=== PATIENT | female | born 1980 | race American Indian/Alaskan Native ===

== ENCOUNTER 2018-12-11 12:15 | Outpatient (CLI) | payer OTHER ==
--- NOTE | 2018-12-11 13:25 | Mammography Report ---
BILATERAL DIGITAL DIAGNOSTIC MAMMOGRAM with CAD: 12/11/18 12:15:00 CLINICAL: A right palpable breast lump. COMPARISON:None. FINDINGS: The breasts are heterogeneously dense, which may obscure small masses.No mass, architectural distortion or suspicious calcifications. No mammographic finding at a right subareolar palpable marker. IMPRESSION: Negative mammogram.Recommend return for a targeted right breast ultrasound to evaluate the area of palpable lump. BI-RADS CATEGORY: 0--Needs Additional Imaging ACR BI-RADS MAMMOGRAPHIC CODES: 0 = Needs additional imaging evaluation; 1 = Negative; 2 = Benign; 3 = Probably benign; 4 = Suspicious; 5 = Malignant; 6 = Known biopsy-proven malignancy COMMENT: 1. Dense breast tissue, i.e., adenosis, fibrocystic changes, etc., may obscure an underlying neoplasm. 2. Approximately 10% of cancers are not detected with mammography. 3. A negative mammography report should not delay biopsy if a clinically suspicious mass is present. COMMENT: Patient follow-up letters are generated by our [employer] application.
== END 2018-12-11 12:16 | disposition home or self-care (01) ==
LOC: SPVWC 12:15
PROVIDERS: ATTEND Internal Medicine
DX: N63.10 Unspecified lump in the right breast, unspecified quadrant (principal)
CPT/HCPCS: 77066

== ENCOUNTER 2019-01-18 10:12 | Outpatient (CLI) | payer OTHER ==
--- NOTE | 2019-01-18 12:01 | Ultrasound Report ---
TARGETED RIGHT BREAST ULTRASOUND: 01/18/19 10:12:00 CLINICAL: 38 year-old with a right palpable lump. COMPARISON: 12/11/18 FINDINGS: Ultrasound of the right breast was performed in the periareolar area from 7 to 9 o'clock. A palpable oval intradermal cyst is identified at 8 o'clock 4 cm from the nipple. It correlates with the palpable lump and measures 3 mm. A benign cyst at 9 o'clock 8 cm from the nipple measures 3 x 3 x 2 mm. No solid mass or shadowing. IMPRESSION: A benign 3 mm intradermal cyst at 8 o'clock 4 cm from the nipple correlates with the palpable lump. BI-RADS 2 - - Benign RECOMMENDATION: Clinical followup and routine mammographic screening based on ACS guidelines.
== END 2019-01-18 10:13 | disposition home or self-care (01) ==
LOC: SPVWC 10:12
PROVIDERS: ATTEND Internal Medicine
DX: N60.01 Solitary cyst of right breast (principal)

== ENCOUNTER 2019-07-12 11:38 | Emergency (ER) | payer OTHER ==
[2019-07-12 11:50] VITALS: BP 119/81
--- NOTE | 2019-07-12 11:59 | Emergency Department Report ---
Blank Doc - Documentation Documentation: 38-year-old female that presents with mid chest pain and some sob. Denies any radiation. This initial assessment/diagnostic orders/clinical plan/treatment(s) is/are subject to change based on patient's health status, clinical progression and re- assessment by fellow clinical providers in the ED. Further treatment and workup at subsequent clinical providers discretion. Patient/guardians urged not to elope from the ED as their condition may be serious if not clinically assessed and managed. Initial orders include: 1- Patient sent to [facility] for further evaluation and treatment 2- CXR 3- labs 4- EKG
[2019-07-12 12:34] LABS: Basophils # (Auto) 0.1 K/mm3 (0.0-0.1); Basophils % (Auto) 1.3 % (0.0-1.8); Eosinophils % (Auto) 0.4 % (0.0-4.3); Hemoglobin 14.9 gm/dl (10.1-14.3); Lymphocytes % (Auto) 51.4 % (13.4-35.0); Mean Corpuscular HGB Conc 34 % (30-34); Mean Corpuscular Volume 92 fl (79-97); Monocytes # (Auto) 0.2 K/mm3 (0.0-0.8); Monocytes % (Auto) 5.9 % (0.0-7.3); Platelet Count 192 K/mm3 (140-440); Red Blood Count 4.79 M/mm3 (3.65-5.03); Red Cell Distribution Width 13.1 % (13.2-15.2)
[2019-07-12 12:48] LABS: BUN/Creatinine Ratio 23; Blood Urea Nitrogen 14 mg/dL (7-17); Calcium 9.2 mg/dL (8.4-10.2); Hemolysis Index 92
--- NOTE | 2019-07-12 12:52 | XRay Report ---
CHEST 2 VIEWS INDICATION: Chest Pain. COMPARISON: None. FINDINGS: Support devices: None. Heart: Within normal limits. Pulmonary vasculature: Normal. Lungs/pleura: No acute air space or interstitial disease. No pneumothorax. Additional findings: None. IMPRESSION: 1. No acute findings. Signer Name: Onofre Garcia MD Signed: 07/12/2019 12:48 PM Workstation Name: [id number]
--- NOTE | 2019-07-12 13:32 | Emergency Department Report ---
ED Chest Pain HPI - General Chief Complaint: Chest Pain Stated Complaint: CHEST PAIN Time Seen by Provider: 07/12/19 11:57 Source: patient Mode of arrival: Ambulatory Limitations: No Limitations - History of Present Illness Initial Comments: Jania is a very pleasant healthy 38-year-old female without significant past medical history who presents with persistent chest pain for the past 10 days. Chest pain is in the center of the chest persistent. No change with movement or time of day. She does notice a lot more gas. A lot of belching. She denies shortness of breath. She denies leg pain. She has IUD in place. No use of oral contraceptives. No significant family history for cardiac disease. Mild symptoms. She has not taken nxap-hnb-[id number] medication for the pain. Her primary care physician's practice name is [facility] MD Complaint: chest pain -: Gradual, days(s) (10) Onset: during rest Pain Location: substernal Pain Radiation: none Severity scale (0 -10): 2 Quality: pressure Consistency: constant Improves With: nothing Worsens With: nothing Other Symptoms: burping Treatments Prior to Arrival: none - Related Data Previous Rx's Medication Instructions Recorded Last Taken Type Famotidine [Pepcid] 20 mg PO BID 14 Days #28 tablet 07/12/19 Unknown Rx Allergies Allergy/AdvReac Type Severity Reaction Status Date / Time No Known Allergies Allergy Unverified 07/12/19 11:59 Heart Score - HEART Score History: Slightly suspicious EKG: Normal Age: < 45 Risk factors: No known risk factors Troponin: < normal limit HEART Score: 0 ED Review of Systems ROS: Stated complaint: CHEST PAIN Other details as noted in HPI Comment: All other systems reviewed and negative Constitutional: denies: chills, fever Eyes: denies: eye pain, eye discharge, vision change ENT: denies: ear pain, throat pain Respiratory: denies: cough, shortness of breath, wheezing Cardiovascular: denies: chest pain, palpitations Endocrine: no symptoms reported Gastrointestinal: denies: abdominal pain, nausea, diarrhea Genitourinary: denies: urgency, dysuria, discharge Musculoskeletal: denies: back pain, joint swelling, arthralgia Skin: denies: rash, lesions Neurological: denies: headache, weakness, paresthesias Psychiatric: denies: anxiety, depression Hematological/Lymphatic: denies: easy bleeding, easy bruising ED Past Medical Hx - Past Medical History Previous Medical History?: No - Surgical History Past Surgical History?: No - Social History Smoking Status: Never Smoker Substance Use Type: None - Medications Home Medications: Home Medications Medication Instructions Recorded Confirmed Last Taken Type Famotidine [Pepcid] 20 mg PO BID 14 Days #28 tablet 07/12/19 Unknown Rx ED Physical Exam - General Limitations: No Limitations General appearance: alert, in no apparent distress - Head Head exam: Present: atraumatic, normocephalic - Eye Eye exam: Present: normal appearance - ENT ENT exam: Present: mucous membranes moist - Neck Neck exam: Present: normal inspection, full ROM - Respiratory Respiratory exam: Present: normal lung sounds bilaterally. Absent: respiratory distress, wheezes, rales, rhonchi - Cardiovascular Cardiovascular Exam: Present: regular rate, normal rhythm, normal heart sounds. Absent: systolic murmur, diastolic murmur, rubs, gallop - GI/Abdominal GI/Abdominal exam: Present: soft, normal bowel sounds. Absent: distended, tenderness, guarding, rebound - Extremities Exam Extremities exam: Present: normal inspection - Back Exam Back exam: Present: normal inspection - Neurological Exam Neurological exam: Present: alert, oriented X3 - Psychiatric Psychiatric exam: Present: normal affect, normal mood - Skin Skin exam: Present: warm, dry, intact, normal color. Absent: rash ED Course Vital Signs 07/12/19 07/12/19 07/12/19 11:47 11:57 12:03 Temperature 98.5 F 98.5 F Pulse Rate 67 67 Respiratory 16 18 16 Rate Blood Pressure 119/81 119/81 O2 Sat by Pulse 100 100 Oximetry ED Medical Decision Making - Lab Data Result diagrams: 07/12/19 12:11 07/12/19 12:11 Laboratory Results - last 24 hr 07/12/19 07/12/19 12:11 12:11 WBC 3.9 L RBC 4.79 Hgb 14.9 H Hct 44.0 H MCV 92 MCH 31 MCHC 34 RDW 13.1 L Plt Count 192 Lymph % (Auto) 51.4 H [place] % (Auto) 5.9 Eos % (Auto) 0.4 Baso % (Auto) 1.3 Lymph # 2.0 [place] # 0.2 Eos # 0.0 Baso # 0.1 Seg Neutrophils % 41.0 Seg Neutrophils # 1.6 L Sodium 136 L Potassium 4.8 Chloride 103.5 Carbon Dioxide 21 L Anion Gap 16 BUN 14 Creatinine 0.6 L Estimated GFR > 60 BUN/Creatinine Ratio 23 Glucose 88 Calcium 9.2 Troponin T < 0.010 - EKG Data 07/12/19 13:30 EKG obtained 1144 Normal sinus rhythm rate 60 beats a minute normal axis normal intervals no ST-T signs of ischemia poor R progression in the anterior leads - Radiology Data Radiology results: report reviewed Chest radiograph no acute process according to radiology impression - Medical Decision Making Ms. Iraheta presents with persistent chest pain associated with throat belching. Suspicious for GERD. No indication of ACS or pulmonary embolism. PERC Negative. She will follow-up with her PCP. Prescribed famotidine twice a day. Critical care attestation.: If time is entered above; I have spent that time in minutes in the direct care of this critically ill patient, excluding procedure time. ED Disposition Clinical Impression: GERD (gastroesophageal reflux disease), Chest pain Disposition: [id number] TO HOME OR SELFCARE Is pt being admited?: No Does the pt Need Aspirin: No Condition: Stable Instructions: Chest Pain (ED), Gastroesophageal Reflux Disease (ED) Prescriptions: Famotidine [Pepcid] 20 mg PO BID 14 Days #28 tablet Referrals: PRIMARY CARE, [Referring] - 3-5 Days Forms: Work/School Release Form(ED)
== END 2019-07-12 14:00 | disposition home or self-care (01) ==
LOC: ED 11:38
DX: K21.9 Gastro-esophageal reflux disease without esophagitis (principal); Z79.899 Other long term (current) drug therapy
CPT/HCPCS: 36415; 71046; 80048; 84484; 85025; 93005; 93010; 99284